=== PATIENT | male | born 1985 | race Caucasian/White ===

== ENCOUNTER 2017-01-28 10:30 | Emergency (ER) | payer SELFPAY ==
[~2017-01-28] VITALS: Ht 167.6 cm; Wt 59.0 kg
[~2017-01-28 10:30] MED LIST: CELEXA20 MG PO; XANAX0.5 M1 PO
[2017-01-28] MEDS ORDERED: ATARAX10 MG PO (10:49)
== END 2017-01-28 12:40 | disposition short-term general hospital (02) ==
LOC: ER 10:30
DX: K52.9 Noninfective gastroenteritis and colitis, unspecified (principal); F17.210 Nicotine dependence, cigarettes, uncomplicated; F41.9 Anxiety disorder, unspecified; F32.9 Major depressive disorder, single episode, unspecified; Z79.899 Other long term (current) drug therapy
CPT/HCPCS: J2405

== ENCOUNTER 2017-04-04 01:55 | Emergency (ER) | payer SELFPAY ==
[~2017-04-04 01:55] MED LIST changes: +ATARAX10 MG PO
== END 2017-04-04 04:00 | disposition short-term general hospital (02) ==
LOC: ER 01:55
DX: F41.0 Panic disorder [episodic paroxysmal anxiety] (principal); F32.9 Major depressive disorder, single episode, unspecified; F17.210 Nicotine dependence, cigarettes, uncomplicated